=== PATIENT | female | born 1985 | race Caucasian/White ===

== ENCOUNTER 2020-05-30 11:25 | Outpatient (RCR) | payer OTHER, SELFPAY | END 2020-07-31 23:59 | LOC: IMMUN 11:25 | PROVIDERS: Visit Provider Family Medicine | DX: Z23 Encounter for immunization (principal) | CPT/HCPCS: 0001A; 0002A; 91300 ==

== ENCOUNTER 2020-12-11 09:40 | Inpatient (IN) | payer OTHER, SELFPAY ==
--- NOTE | 2020-12-03 16:30 | PCM.HP.BLA ---
History and Physical Date of Admission: 12/11/20 Pre-Op History and Physical ? HPI: The patient is a 35 year old female presenting for pre-operative visit. She is scheduled for repeat cs and bilateral salpingectomy , for 37+ week cholestasis of and desires sterlizationon 12/11/20. Procedure discussed along with risks, benefits and complications. Other alternatives discussed for management. Consent form signed? Yes. ? ? PAST MEDICAL HISTORY PAST MEDICAL HISTORY Diagnosis Date ? Anemia ? ? Asthma, exercise induced ? ? Cold sores ? ? DDD (degenerative disc disease), cervical ? ? Pap smear abnormality of cervix/human papillomavirus (HPV) positive ? ? PCOS (polycystic ovarian syndrome) ? ? Vitamin D deficiency ? ? ? PAST SURGICAL HISTORY PAST SURGICAL HISTORY Procedure Laterality Date ? D AND C ? 2011 ? OTHER SURGICAL HISTORY (PLEASE SPECIFY) HX ? ? ? last injection in January of 2019. Cervical spine injections with pain management. ? REMOVAL ADENOIDS,SECOND,12+ Y/O ? ? ? SHOULDER SURGERY HX Bilateral ? ? VAGINOSCOPY ? 2007 ? ? ? CURRENT MEDICATIONS Current Outpatient Medications Medication Sig Dispense Refill ? hydrOXYzine pamoate (VISTARIL) 25 mg capsule Take 1 capsule by mouth three times daily as needed. 30 capsule 0 ? ursodiol (ACTIGALL) 300 mg capsule Take 1 capsule by mouth three times daily. 90 capsule 0 ? Jbqernqk-Ks-Iyv-Fe-FA ( VITAMIN) tab Take 1 tablet by mouth once daily. ? ? ? loratadine (CLARITIN) 10 mg tablet Take 10 mg by mouth as needed. ? docosahexaenoic acid (DHA ORAL) Take by mouth. ? ? ? Current Facility-Administered Medications Medication Dose Route Frequency Provider Last Rate Last Admin ? bupivacaine 7.5 mg injection (SENSORCAINE) 3 mL OTHER As Directed Zoey Lew MD 7.5 mg at 04/19/20 1139 ? ? ALLERGIES: Sulfa (Sulfonamide Antibiotics) ? PERSONAL HISTORY: SOCIAL HISTORY Social History ? Tobacco Use ? Smoking status: Former Smoker ? ? Years: 2.00 ? Smokeless tobacco: Never Used ? Tobacco comment: during college ~2 year [id number] Vaping Use ? Vaping Use: Never used Substance Use Topics ? Alcohol use: Not Currently ? ? Comment: wine on occ ? Drug use: Never ? FAMILY HISTORY: FAMILY HISTORY FAMILY HISTORY Adopted: Yes Problem Relation Age of Onset ? No Known Problems Daughter ? ? No Known Problems Daughter ? ? ? REVIEW OF SYMPTOMS: negative except as noted above PHYSICAL EXAMINATION: ? VITALS: Weight 205 lb (93 kg), last menstrual period 03/25/2020. ? GENERAL: The patient is well nourished, well hydrated in no acute distress. , The patient is oriented to time, place, and person. NECK: full range of motion Abdomen: soft, gravid, non tender. ? IMPRESSION: @ 36.1 weeks gestation- LGA, Cholestasis of , desires sterilization ? PLAN: Repeat cs at 37.1 weeks, with bilateral salpingectomy ? Pt has been counseled on risks/benefits and alternatives of surgery including but not limited to anesthesia, bleeding, infection, injury to pelvic structures including bowel, bladder, ureters and vessels. Pt wishes to proceed with surgery at this time.pt understand bilateral salpingectomy is permament. ? covid testing reviewed covid booster reviewed ? NSTs twice weekly ? ? ? I have reviewed and updated past medical and surgical history, medications and allergies Ceci Bethea MD
--- NOTE | 2020-12-10 16:17 | PCM.HP.BLA ---
History and Physical Date of Admission: 12/11/20 History and Physical Date of Admission: 12/11/20 Pre-Op History and Physical HPI: The patient is a 35 year old female presenting for pre-operative visit. She is scheduled for repeat cs and bilateral salpingectomy , for 37+ week cholestasis of and desires sterlizationon 12/11/20. Procedure discussed along with risks, benefits and complications. Other alternatives discussed for management. Consent form signed? Yes. PAST MEDICAL HISTORY PAST MEDICAL HISTORY Diagnosis Date ? Anemia ? Asthma, exercise induced ? Cold sores ? DDD (degenerative disc disease), cervical ? Pap smear abnormality of cervix/human papillomavirus (HPV) positive ? PCOS (polycystic ovarian syndrome) ? Vitamin D deficiency PAST SURGICAL HISTORY PAST SURGICAL HISTORY Procedure Laterality Date ? D AND C 2011 ? OTHER SURGICAL HISTORY (PLEASE SPECIFY) HX last injection in January of 2019. Cervical spine injections with pain management. ? REMOVAL ADENOIDS,SECOND,12+ Y/O ? SHOULDER SURGERY HX Bilateral ? VAGINOSCOPY 2007 CURRENT MEDICATIONS Current Outpatient Medications Medication Sig Dispense Refill ? hydrOXYzine pamoate (VISTARIL) 25 mg capsule Take 1 capsule by mouth three times daily as needed. 30 capsule 0 ? ursodiol (ACTIGALL) 300 mg capsule Take 1 capsule by mouth three times daily. 90 capsule 0 ? Kaxfvvgu-Ob-Vir-Fe-FA ( VITAMIN) tab Take 1 tablet by mouth once daily. ? loratadine (CLARITIN) 10 mg tablet Take 10 mg by mouth as needed. ? docosahexaenoic acid (DHA ORAL) Take by mouth. Current Facility-Administered Medications Medication Dose Route Frequency Provider Last Rate Last Admin ? bupivacaine 7.5 mg injection (SENSORCAINE) 3 mL OTHER As Directed Zoey Lew MD 7.5 mg at 04/19/20 1139 ALLERGIES: Sulfa (Sulfonamide Antibiotics) PERSONAL HISTORY: SOCIAL HISTORY Social History Tobacco Use ? Smoking status: Former Smoker Years: 2.00 ? Smokeless tobacco: Never Used ? Tobacco comment: during college ~2 year [id number] Vaping Use ? Vaping Use: Never used Substance Use Topics ? Alcohol use: Not Currently Comment: wine on occ ? Drug use: Never FAMILY HISTORY: FAMILY HISTORY FAMILY HISTORY Adopted: Yes Problem Relation Age of Onset ? No Known Problems Daughter ? No Known Problems Daughter REVIEW OF SYMPTOMS: negative except as noted above PHYSICAL EXAMINATION: VITALS: Weight 205 lb (93 kg), last menstrual period 03/25/2020. GENERAL: The patient is well nourished, well hydrated in no acute distress. , The patient is oriented to time, place, and person. NECK: full range of motion Abdomen: soft, gravid, non tender. IMPRESSION: @ 36.1 weeks gestation- LGA, Cholestasis of , desires sterilization PLAN: Repeat cs at 37.1 weeks, with bilateral salpingectomy Pt has been counseled on risks/benefits and alternatives of surgery including but not limited to anesthesia, bleeding, infection, injury to pelvic structures including bowel, bladder, ureters and vessels. Pt wishes to proceed with surgery at this time.pt understand bilateral salpingectomy is permament. covid testing reviewed covid booster reviewed NSTs twice weekly I have reviewed and updated past medical and surgical history, medications and allergies Ceci Bethea MD
[2020-12-11] VITALS (20 sets, daily range): BP systolic 97–116; BP diastolic 45–74; PULSE 65–84; RESP 16–18; TEMP 36.1–37; O2SAT 95–100; BMI 34.1
[2020-12-11] MEDS: Lactated Ringers 1,000 ML 999 ML IV (10:10)
[2020-12-11] MEDS: Acetaminophen 500 MG Tablet 1000 MG PO ×3 (10:22→22:55)
[2020-12-11 10:25] LABS: Absolute Lymphocyte Count 1.42 X10^3/uL (0.83-4.51); Absolute Neutrophil Count 6.1 X10^3/uL (2.0-7.7); Basophil# 0.03 X10^3/uL; Basophil% 0.4 % (0-1); Eosinophil# 0.13 X10^3/uL; Eosinophils% 1.6 % (0-5); Hematocrit 33.2 % (37-47); Hemoglobin 10.6 g/dL (12.0-15.0); Lymphocyte # 1.42 X10^3/ul (0.83-4.51); Mean Corp Hgb Conc 31.9 g/dL (32-36); Mean Corpuscular Hgb 28.9 pg (27.0-32.0); Mean Corpuscular Volume 90.5 fL (81-99); Monocyte# 0.59 X10^3/uL; Monocyte% 7.1 % (0-10); NRBC Flagged by Analyzer 0 % (0-5); Neutrophil % 73.2 % (47-70); Platelet Count 265 K/mm3 (150-450); RBC Distribution Width CV 14.9 % (11.6-14.6); RBC Distribution Width SD 48.7 fl (35.1-43.9); Red Blood Count 3.67 M/mm3 (4.2-5.4); White Blood Count 8.3 K/mm3 (4.4-11.0)
[2020-12-11] MEDS: Lactated Ringers 1,000 ML 150 ML IV (11:06)
[2020-12-11] MEDS: Sodium Citrate/Citric Acid 30 ML UDC PO (11:45)
[2020-12-11] MEDS: Cefazolin 2 GM in 0.9% Normal Saline 100 ML IV (12:08)
--- NOTE | 2020-12-11 12:40 | FALS_PTH ---
PATIENT: DUTCH MONTOYA LOC: [facility] U#:[id number] AGE/SX: 35/F ROOM: WP008 RE12/11/[address]: Dr. Ceci Valencia, MDDOB: 1985 BED: 1 DIS: 12/13/2020 SPEC #: [id number] RECD: 12/11/20 13:42 STATUS: SABRINA GAVI #: [id number] KRANTHI: 12/11/20 12:[address]: Ceci Valencia DEPT: SURGICAL PATHOLOGY RECD BY: Floridalma Torres Tissues: Fallopian tube Procedures: Surgery Specimen Level II HEADER OPERATION: Tubal ligation PRE-OP DIAGNOSIS: Sterilization TISSUE SUBMITTED: Fallopian tubes, suture in right fallopian tube MICROSCOPIC DIAGNOSIS Right fallopian tube, salpingectomy: Complete segment of fallopian tube with no pathologic change. Left fallopian tube, salpingectomy: Complete segment of fallopian tube with no pathologic change. AM:luz maria 12/13/2020 MICROSCOPIC DESCRIPTION Slides are reviewed. GROSS DESCRIPTION Received in fixative is one container labeled with the patient's name and designated bilateral fallopian tubes, right with suture. The specimen consists of two fallopian tubes with an average length of 6 cm and has an average diameter of 0.8 cm. Both fallopian tubes have normal fimbriated ends. No mass lesions are identified. [employer] sections are submitted in two cassettes as follows: 1 - right fallopian tube, 2 - left fallopian tube. / AM:luz maria 12/12/20 TC:4 CPT: 41856 x2
--- NOTE | 2020-12-11 12:52 | OP.PCM_ITS ---
Maternal Data Information Final TUYET: 12/24/20 Final TUYET Source: US <20 weeks Gestational age: 37.1 Details Operative Information Date of Procedure: 12/11/20 Pre-Operative Diagnosis: Cholestasis of , LGA, early term , AMA, Previous c/s , desires sterilization Post-Operative Diagnosis: same, live male Indications for : Repeat Elective and Desires elective sterilization Classification: Scheduled Procedure Type: bilateral salpingectomy director religious education #1: Jewel Pepe Type of Anesthesia: Spinal Antibiotic Given: Ancef 2 grams IV x1 Drain: Bello to straight drain Estimated Blood Loss: 600 Fluids Replaced: 1200 Procedure Start Time: 12:21 Procedure Stop Time: 13:00 Time of Delivery: 12:26 Findings Description of Procedure: After informed consent was obtained the patient was taken to the operating room she was given spinal anesthesia. she was placed in the supine position. She was then prepped and draped in normal sterile fashion. Once spinal anesthesia was found to be adequate skin incision was made with a scalpel in a Pfannenstiel fashion. It was carried down to the underlying layer of the fascia. Fascia was then incised midline with scapel and extended laterally using curved shirley. 2 straight [place]'s were placed in the superior aspect of the fascial edge and the rectus muscles were dissected off sharply. Attention was then turned to the inferior aspect where again the fascial edge was grasped with 2 straight Ching clamps tented up and the rectus muscle dissected off sharply. At this time the rectus muscles were grasped in the midline using 2 Allis clamps and scalpel was used to separate the rectus muscles. Using blunt force the peritoneum was then entered. Metzenbaums were used to take down the rectus muscles inferiorly as well as the peritoneum. At this time the vesicouterine peritoneum was identified. large vessel noted, thin lower uterine segment. vessel was coagulated and suture ligated. . Uterine inc ision was made in a low transverse fashion with the scalpel and then entered bluntly. Gentle opposing traction was placed to extend the uterine incision. The membranes were ruptured amniotic fluid clear. 's head was then brought to the uterine incision was delivered atraumatically followed by the rest infant's body. At this time delayed cord clamping was performed mouth nose were suctioned. Infant was then handed to the waiting nursery team. The placenta was then removed with gentle traction. The uterus was removed from the intra-abdominal cavity is wrapped in a moist lap. He was cleared of all clots and debris using a moist lap. Ring clamps were placed on the uterine angles. #1 Vicryl suture was used in a running locked fashion for the first layer. Tubes and ovaries were evaluated they were normal. The tubes were grasped in an avascular area with the [place]. The peritoneum was grasped with Kellys. Peritoneum was reapproximated using #2 Vicryl suture in a running fashion. Muscle was then reapproximated using #2 Vicryl in an interrupted mattress suture fashion. The fascia was then reapproximated using #1 Vicryl in a running fashion. Subcutaneous LigaSure device was used to seal and ligate along the mesosalpinx to remove the tube completely. This was performed first on the right side. The uterus was then placed in the intra-abdominal cavity and this was repeated on the left side. Good hemostasis was appreciated. Jose was placed over the pedicles and the uterine incision. Peritoneum was then grasped with Kellys. The peritoneum and muscle reapproximated using 2-0 Vicryl in a running fashion. Rectus muscles were hemostatic. Jose was placed over the rectus muscles. Subcu layer was evaluated and Bovie was used for any small oozing that was noted per #2-0 plain gut suture was then used to reapproximate the subcutaneous layer 4-0 Vicryl on a Yonas needle was used to reapproximate the skin in a subcutaneous fashion. Dry sterile dressing was applied. Instrument lap needle count were correct ?2. Anticipated normal postoperative course for this patient. Presentation: Positive for Vertex Amniotic Membrane Rupture Type: Artificial Amniotic Fluid Description: Clear Placental Delivery Description: Expressed Placenta Disposition: [facility] Specimen(s) Sent to Pathology: Bilateral fallopian tubes, placenta Cord Vessel Description: 3 Vessels Cord Entanglement: Around neck x 2, loose Nuchal Cord Compression: Without compression Infant A Gender: Male (1 minute): 8 (5 minute): 9 Delayed Cord Clamping: Yes Complications Risks of Surgery Discussed w/Patient: Bleeding, Anesthesia Risks, Infection, Permanency, Failure Rate of 1 to 2%, Injury to surrounding structure(s) including bowel and bladder and Availability of other non-permanent control options Complications: none Admit VTE Documentation VTE Present on Admission: Yes VTE Mechan Device Prophylaxis: SCD's VTE Pharm Prophylaxis Ordered: No Reason Prophylaxis Not Ordered: Treatment Not Indicated
[2020-12-11] MEDS: Oxytocin 30 units/NS 500 ml 30 UNITS/500 ML IV.SOLN 167 UNITS IV (13:31)
[2020-12-11] MEDS: Ketorolac 30 MG/ML Syringe IV ×2 (13:33→19:08)
[2020-12-11] MEDS: Lactated Ringers 1,000 ML 100 ML IV (16:32)
--- NOTE | 2020-12-11 23:24 | NURSING ---
Report given to Heidi LEVINE, taking over pt care at this time.
[2020-12-12] VITALS (10 sets, daily range): BP systolic 101–122; BP diastolic 43–70; PULSE 68–89; RESP 16–18; TEMP 36.5–36.8; O2SAT 96–98
[2020-12-12] MEDS: Ketorolac 30 MG/ML Syringe IV ×2 (01:54→07:47)
[2020-12-12] MEDS: Acetaminophen 500 MG Tablet 1000 MG PO ×4 (04:00→22:16)
[2020-12-12 05:48] LABS: Hematocrit 27.7 % (37-47); Hemoglobin 9.2 g/dL (12.0-15.0); Mean Corp Hgb Conc 33.2 g/dL (32-36); Mean Corpuscular Hgb 29.9 pg (27.0-32.0); Mean Corpuscular Volume 89.9 fL (81-99); Mean Platelet Vol. 9.7 fl (6.2-12.0); Platelet Count 241 K/mm3 (150-450); RBC Distribution Width SD 48.4 fl (35.1-43.9); Red Blood Count 3.08 M/mm3 (4.2-5.4); White Blood Count 8.6 K/mm3 (4.4-11.0)
--- NOTE | 2020-12-12 07:07 | PCM.PN.OB ---
Subjective Subjective Patient seen at bedside. Pain is controlled with medications. Denies any SOB, CP, dizziness or headaches. infant with minimal support. Desires discharge home tomorrow. Objective Data Objective Data Vital Signs: Vital Signs Temp Pulse Resp BP Pulse Ox 97 F L 72 16 101/43 L 96 12/11/20 23:42 12/12/20 05:31 12/12/20 05:31 12/12/20 03:56 12/12/20 05:31 Oxygen Delivery Method Room Air Weight: 205 lb Body Mass Index (BMI) 34.1 Intake & Output: Intake and Output for Last 24 Hours 12/10/20 12/11/20 12/12/20 23:59 23:59 23:59 Intake Total 3372.5 / 4119.17 746.67 / 746.67 Output Total 1875 / 1875 500 / 500 Balance 1497.5 / 2244.17 246.67 / 246.67 Lab / Micro Data Result Diagrams: 12/12/20 05:40 Labs: Laboratory Results - last 24 hr 12/11/20 10:10: WBC 8.3, RBC 3.67 L, Hgb 10.6 L, Hct 33.2 L, MCV 90.5, MCH 28.9, MCHC 31.9 L, RDW Std Deviation 48.7 H, RDW Coeff of Kirsten 14.9 H, Plt Count 265, MPV 10.0, Immature Gran % (Auto) 0.700, Neut % (Auto) 73.2 H, Lymph % (Auto) 17.0 L, Riley % (Auto) 7.1, Eos % (Auto) 1.6, Baso % (Auto) 0.4, Absolute Neuts (auto) 6.1, Absolute Lymphs (auto) 1.42, Nucleated RBC % 0 12/11/20 10:10: Blood Type O POSITIVE, Antibody Screen NEGATIVE 12/12/20 05:40: WBC 8.6, RBC 3.08 L, Hgb 9.2 L, Hct 27.7 L, MCV 89.9, MCH 29.9, MCHC 33.2, RDW Std Deviation 48.4 H, RDW Coeff of Kirsten 15.0 H, Plt Count 241, MPV 9.7 ROS Eyes Eyes: Denies blurry vision, change in vision or spots in vision ENT HEENT: Denies dizziness or headache(s) Cardiovascular Cardiovascular: Denies abdominal pain, chest pain or dyspnea Respiratory/Chest Respiratory/Chest: Denies cough, dyspnea, shortness of breath at rest or shortness of breath with exertion Gastrointestinal Gastrointestinal: Denies abdominal pain, diarrhea or vomiting Genitourinary Genitourinary: Denies change in urinary stream, difficulty urinating or dysuria Musculoskeletal Musculoskeletal: Reports none Integumentary Integumentary: Denies rash Neurologic Neurologic: Denies dizziness, headache(s), memory loss or weakness Physical Exam Narrative Dressing is dry and intact Const alert and no apparent distress General Appearance: cooperative and comfortable Exam Limitations: no limitations HEENT normocephalic Eyes General Eye: normal appearance of both eyes Neck full ROM General: normal visual inspection Chest Chest: symmetrical chest wall rise Resp normal respiratory effort and normal air movement Effort and Inspection: symmetric chest movement Auscultation: clear to auscultation bilaterally Cardio regular rate and regular rhythm GI normal to inspection, nondistended, normoactive bowel sounds Back/Spine normal ROM Extremity full ROM and no calf tenderness General Extremity: normal exam except as noted Skin no rashes or lesions noted Neuro CN's II-XII intact bilaterally Psych mental status grossly normal Assessment & Plan (1) Status post repeat low transverse section: (2) Status post tubal ligation: PLAN: POD #1 Pain control Routine care Increase ambulation Breast feeding support
[2020-12-12] MEDS: Senna/Docusate Sodium 1 Tablet PO (09:51)
[2020-12-12] MEDS: Ibuprofen 600 MG Tablet PO ×2 (13:31→20:14)
[2020-12-12] MEDS: oxyCODONE 5 MG Tablet PO ×2 (14:41→18:46)
[2020-12-13 01:44] VITALS: BP 111/64; PULSE 74; RESP 18; TEMP 36.4
[2020-12-13] MEDS: Ibuprofen 600 MG Tablet PO ×3 (01:48→13:30)
[2020-12-13] MEDS: Acetaminophen/Butalbital/Caffe 1 Tablet PO ×2 (04:15→08:50)
[2020-12-13 07:45] VITALS: BP 112/70; PULSE 70; RESP 18; TEMP 36.6; O2SAT 97
--- NOTE | 2020-12-13 09:21 | PN.OBGYN_ITS ---
Subjective Subjective Patient seen at bedside, laying flat. Patient reports headaches when moving and sitting. Headache improved when laying flat. Patient having a difficult time functioning at this time due to likely spinal headache. Patient reports is urinating well. Patient reports mild lochia. Breast-feeding. Pain overall con trolled from section but just overall does not feel well due to the headache. Objective Data Objective Data Vital Signs: Vital Signs Temp Pulse Resp BP Pulse Ox 97.9 F 70 18 112/70 97 12/13/20 07:45 12/13/20 07:45 12/13/20 07:45 12/13/20 07:45 12/13/20 07:45 Oxygen Delivery Method Room Air Weight: 92.986 kg Body Mass Index (BMI) 34.1 Intake & Output: Intake and Output for Last 24 Hours 12/11/20 12/12/20 12/13/20 23:59 23:59 23:59 Intake Total 3372.5 / 4119.17 746.67 / 746.67 Output Total 1875 / 1875 500 / 500 Balance 1497.5 / 2244.17 246.67 / 246.67 Lab / Micro Data Result Diagrams: 12/12/20 05:40 Physical Exam Narrative Incision dressing dry and intact. Const alert and oriented x3 General Appearance: cooperative HEENT normocephalic Neck General: normal visual inspection GI soft to palpation and non-distended GI Narrative: Fundus firm Extremity normal to inspection and no calf tenderness Skin no rashes or lesions noted Neuro oriented x3 and CN's II-XII intact bilaterally Psych mental status grossly normal Assessment & Plan (1) Status post repeat low transverse section: (2) Status post tubal ligation: (3) Mother currently breast-feeding: PLAN: POD# 2 , likely spinal headache Routine care pain mgmt monitor VS ambulation anesthesia to evaluate patient
--- NOTE | 2020-12-13 09:25 | PCM.DC ---
Discharge Instructions Diet Discharge Diet: No restrictions Activity May resume sexual activity in: 6-8 weeks Lifting Restrictions: 25 Dressing / Incision Call your doctor if your incision/area has: Continuous Slow Oozing, Sudden Increased Bleeding, Increased Pain/ Swelling, Increased Redness, Foul Smelling Discharge and Swelling at the incision site Call your doctor if you observe: Fever of 101 or Higher, Inability to urinate, Using more than 1 pad per hour and Uncontrolled pain Additional Dressing/Incision Instructions:: remove dressing at 7 days post op- if it becomes saturated prior to that time you may remove it. Let soap and water run over incision sites and dab dry. keep incision clean and dry. Follow Up Care Please Follow Up With: Ceci Valencia MD When: 1-2 weeks post of incision check and again at 6 weeks post . [phone] Test Results: Test results from this visit will be discussed in further detail at your follow-up appointment, if applicable. Discharge Plan Admission Admit Date/Time: 12/11/20 09:40 Attending Provider: Ceci Valencia Discharge Orders/Prescriptions Prescriptions: New acetaminophen 500 mg Tablet 1,000 mg PO Q6H Qty: 0 RF: 0 ibuprofen 600 mg Tablet 600 mg PO Q6H Qty: 0 RF: 0 simethicone [Mi-Acid Gas Relief(simethicon)] 80 mg Tablet,Chewable 80 mg PO PCHS PRN (Reason: Indigestion/stomach pain) Qty: 0 RF: 0 Continued prenat.vits,aidan,ord-yysa-twfex Tablet 1 tab PO DAILY RF: 0 Discontinued ursodiol 300 mg Capsule 300 mg PO TID RF: 0 Disposition Disposition (needs filled in before D/C Order can be placed): Home, Self Care
[2020-12-13] MEDS: 0.9% Saline Lock 10 ML Syringe IV ×2 (10:49→12:09)
[2020-12-13] MEDS: Lactated Ringers 1,000 ML 999 ML IV (10:50)
[2020-12-13] MEDS: Senna/Docusate Sodium 1 Tablet PO (11:37)
[2020-12-13 12:48] VITALS: BP 114/69; PULSE 68; RESP 16; TEMP 36.3
[2020-12-13 15:17] LABS: Pathology Specimen OB SEE PATHOLOGY REPORT
== END 2020-12-13 14:20 | disposition home or self-care (01) | DRG 785 ==
PROVIDERS: Admitting Provider Obstetrics & Gynecology; Visit Provider Obstetrics & Gynecology
PROC: 10D00Z1 Extraction of Products of Conception, Low, Open Approach (ICD-10-PCS; CPT 59514; principal; 2020-12-11 11:45)
DX: O34.219 Maternal care for unspecified type scar from previous cesarean delivery (principal); O69.81X0 Labor and delivery complicated by cord around neck, without compression, not applicable or unspecified; O36.63X0 Maternal care for excessive fetal growth, third trimester, not applicable or unspecified; Z30.2 Encounter for sterilization; O89.4 Spinal and epidural anesthesia-induced headache during the puerperium; J45.990 Exercise induced bronchospasm; Z87.891 Personal history of nicotine dependence; Z3A.37 37 weeks gestation of pregnancy; Z37.0 Single live birth
CPT/HCPCS: 85025; 85027; 86850; 86900; 86901; 88302; 99218; J7120; A4216; G0378; J2405

== ENCOUNTER 2020-12-17 10:59 | Day surgery (SDC) | payer OTHER, SELFPAY ==
[2020-12-17 11:45] VITALS: BP 147/78; PULSE 60; RESP 16; TEMP 36.8; O2SAT 96; BMI 31.6
[2020-12-17 12:00] VITALS: BP 149/81; PULSE 60; RESP 16; O2SAT 97
[2020-12-17 12:15] VITALS: BP 138/85; PULSE 58; RESP 16; O2SAT 100
[2020-12-17] MEDS: Lactated Ringers 1,000 ML 999 ML IV (12:25)
[2020-12-17 12:30] VITALS: BP 149/83; PULSE 59; RESP 16; O2SAT 100
--- NOTE | 2020-12-17 13:19 | SUR.PREOP ---
FROM 12:00 TO 12:30, DR Zeyad PEDROZA PERFORMED AN EPIDURAL BLOOD PATCH WHILE PATIENT WAS SITTING ON SIDE OF BED. PATIENT IMMEDIATELY LAID DOWN SUPINE AT THE COMPLETION OF THE PROCEDURE. LIGHTS TURNED OFF DUE TO LIGHT SENSITIVITY. BOTH SIDE RAILS UP. CALL LIGHT WITHIN REACH.
[2020-12-17 13:30] VITALS: BP 157/84; PULSE 58; RESP 16; TEMP 36.2; O2SAT 100
== END 2020-12-17 13:45 | disposition home or self-care (01) ==
LOC: SDC 11:02
PROVIDERS: PCP Internal Medicine; Visit Provider Anesthesiology
PROC: 3E0R3GC Introduction of Other Therapeutic Substance into Spinal Canal, Percutaneous Approach (ICD-10-PCS; CPT 62273; principal; 2020-12-17 10:25)
DX: G97.1 Other reaction to spinal and lumbar puncture (principal)
CPT/HCPCS: 62273; J7120